=== PATIENT | male | born 1975 | race Caucasian/White ===

== ENCOUNTER 2023-11-20 17:45 | Emergency (ER) | payer OTHER, BC ==
[~2023-11-20] VITALS: Ht 175.3 cm; Wt 109.0 kg
[~2023-11-20 17:45] MED LIST: CYCLOBENZAPRINE10 MG PO; FEXOFENADINE H180 MG PO; NORCO 5-325 TA1 EACH PO; SERTRALINE HCL25 MG PO; ULTRAM50 MG PO
[2023-11-20] MEDS ORDERED: DULOXETINE HCL40 MG PO (18:45)
[2023-11-20] MEDS ORDERED: methylPREDNISolone 4 MG HOME.PACK PO ONE (20:00)
[2023-11-20 20:02] VITALS: BP 113/82
== END 2023-11-20 20:03 | disposition home or self-care (01) ==
LOC: ED 17:45
DX: S40.862A Insect bite (nonvenomous) of left upper arm, initial encounter (principal); W57.XXXA Bitten or stung by nonvenomous insect and other nonvenomous arthropods, initial encounter
CPT/HCPCS: 99281

== ENCOUNTER 2024-05-07 06:42 | Day surgery (SDC) | payer OTHER ==
[2024-05-03 10:35] VITALS: BP 128/80
[~2024-05-07] VITALS: Ht 175.3 cm; Wt 118.2 kg
[~2024-05-07 06:42] MED LIST changes: +DULOXETINE HCL40 MG PO; +MIDAZOLAM HCL 5 MG/5 ML VIAL IV PRN; +NAPROXEN375 M1 PO; +PAIN RELIEVER500 M1 PO; +QVAR REDIHALE10.6 GM INH; +VITAMIN D325 MC2 PO; +ZANAFLEX4 M1 PO; +fentaNYL citrate 100 MCG/2 ML VIAL IV PRN; +propofoL 200 MG/20 ML VIAL ONE
[2024-05-07 06:55] VITALS: BP 131/80
[2024-05-07] MEDS ORDERED: IBLOOD GLUCOSE TEST STRIP 1 EA TEST VI PRN (07:00)
[2024-05-07] MEDS ORDERED: LIDOCAINE HCL 1% 5 ML SDV INJ ONE (07:00)
[2024-05-07] MEDS ORDERED: LACTATED RINGER'S 1,000 ML IV SCH (07:00)
--- NOTE | 2024-05-07 09:15 | NUR ---
05/07/24 0915 Jina Kearns 0904-PT ARRIVES TO PACU VIA STRETCHER, RESTING ON LT SIDE, PT NOT RESPONSIVE TO NOXIOUS STIMULI, OPA IN PLACE, VSS ON 10L VIA MASK, RR EVEN AND UNLABORED.
--- NOTE | 2024-05-07 10:11 | OR ---
[facility] [address], [place] [address] Signed DATE OF OPERATION: 05/07/2024 SURGEON: Donnell Aparicio MD PREOPERATIVE DIAGNOSIS: Screening. POSTOPERATIVE DIAGNOSES: 1. Minimal to moderate sigmoid diverticulosis. 2. Minimal internal hemorrhoids. PROCEDURE: Colonoscopy without biopsy. ESTIMATED BLOOD LOSS: None. INDICATIONS: Adonis is a 49-year-old obese gentleman asked to see me for his initial screening colonoscopy. I helped him 10 years ago with a pilonidal cyst. He said that it has gone well. Currently, he has no lower GI complaints. There is no family history of colon cancer or polyps. He did have an open radical prostatectomy with Dr. Webb for his prostate cancer. He said that went well. He is now disabled because of his back. In the office, I gave him a pamphlet on colonoscopy. He understands the nature of the test. There is risk including, but not limited to gas bloating, crampy abdominal pain, bleeding, perforation requiring surgery, and missed diagnosis. We also reviewed the written instructions for the bowel prep line by line. Also he has a very full round face, heavy neck, chest and abdomen. He also has sleep apnea. Because of this, we did ask for monitored anesthesia care with propofol infusion. That worked out well today. He understands an adult person has to take him home afterwards. He had expressed understanding and wished to proceed. DESCRIPTION OF PROCEDURE: Adonis was taken into our endoscopy suite, placed in the left lateral decubitus position. He was given monitored anesthesia care with propofol infusion per our nurse production control technologist. A digital rectal exam was performed. He has good sphincter tone. No masses. His prostate is absent. The adult colonoscope was introduced and advanced all the way around into the cecum under direct visualization of camera without much difficulty. He had an area of angulation up in the left colon that took a few minutes to get through and then finally it went nicely into the cecum itself. His prep was very Electronically Signed By: DONNELL APARICIO MD 05/07/24 1011 PATIENT NAME: ADONIS SEGUNDO OPERATIVE REPORT DATE OF : 79 REPORT #: [id number] PHYSICIAN: DONNELL APARICIO MD PCP: ARNALDO MEDINA MD REPORT IS CONFIDENTIAL AND NOT TO BE RELEASED WITHOUT AUTHORIZATION [facility] [address], [place] [address] Signed good. We could easily see the appendiceal orifice and ileocecal valve. The scope was then slowly withdrawn. We took pictures throughout for photodocumentation. He does have diverticula in the sigmoid colon. They were moderate in size, few to moderate in number and scattered about. Rectum was unremarkable. Upon retroflexion of scope he has very minimal internal hemorrhoid tissue. After this, the gas was suctioned out colonoscope removed. Adonis tolerated the procedure quite well. RECOMMENDATIONS: Adonis can return in 10 years for repeat screening colonoscopy. He will likely need monitored anesthesia care once again. Donnell Aparicio MD ALB/MODL /[id number] cc: [facility] Juan Kinney MD Copies: DONNELL APARICIO MD ~ Electronically Signed By: DONNELL APARICIO MD 05/07/24 1011 PATIENT NAME: ADONIS SEGUNDO OPERATIVE REPORT DATE OF : 79 REPORT #: [id number] PHYSICIAN: DONNELL APARICIO MD PCP: ARNALDO MEDINA MD REPORT IS CONFIDENTIAL AND NOT TO BE RELEASED WITHOUT AUTHORIZATION
[2024-05-07 10:14] VITALS: BP 117/79
== END 2024-05-07 10:15 | disposition home or self-care (01) ==
LOC: DS 06:42
PROVIDERS: ATTEND Colon & Rectal Surgery
PROC: 0DJD8ZZ Inspection of Lower Intestinal Tract, Via Natural or Artificial Opening Endoscopic (ICD-10-PCS; principal; 2024-05-07 08:30)
DX: Z12.11 Encounter for screening for malignant neoplasm of colon (principal); K57.30 Diverticulosis of large intestine without perforation or abscess without bleeding; K64.8 Other hemorrhoids; E78.5 Hyperlipidemia, unspecified; G47.33 Obstructive sleep apnea (adult) (pediatric); F32.9 Major depressive disorder, single episode, unspecified; E66.3 Overweight; Z79.899 Other long term (current) drug therapy; Z85.46 Personal history of malignant neoplasm of prostate; Z68.35 Body mass index [BMI] 35.0-35.9, adult
CPT/HCPCS: 00811; J2704; J7121